=== PATIENT | male | born 1955 | race American Indian/Alaskan Native ===

== ENCOUNTER 2019-03-29 08:41 | Day surgery (SDC) | payer MEDICARE, OTHER ==
[~2019-03-29 08:41] MED LIST: DIPRIVAN 10 MG/ML IV ONE; SUBLIMAZE ONE
--- NOTE | 2019-03-29 09:26 | Anesthesia Consultation ---
Anesthesia Consult and Med Hx Date of service: 03/29/19 - Airway Anesthetic Teeth Evaluation: Dentures ROM Head & Neck: Adequate Mental/Hyoid Distance: Adequate Mallampati Class: Class II Intubation Access Assessment: Good - Pulmonary Exam CTA: Yes - Cardiac Exam Cardiac Exam: RRR - Pre-Operative Health Status ASA Pre-Surgery Classification: ASA3 Proposed Anesthetic Plan: General - Pulmonary Hx Smoking: No (CHEWING TOBACCO ONLY) Hx Sleep Apnea: No (WAGNER PRE SCREEN HIGH RISK) - Cardiovascular System Hx Hypertension: Yes (2013) - Central Nervous System Hx Seizures: No CVA: No Hx Back Pain: Yes - Gastrointestinal Hx Gastroesophageal Reflux Disease: No - Endocrine Hx Liver Disease: Yes (Hep C, currently undetectable) Hx Insulin Dependent Diabetes: Yes Hx Non-Insulin Dependent Diabetes: Yes Hx Thyroid Disease: No - Hematic Hx Anemia: No - Other Systems Hx Cancer: Yes (Prostate CA dx'd 06/2104- on Lupron shots) Hx Obesity: Yes
--- NOTE | 2019-03-29 09:26 | Anesthesia Day of Surgery ---
Anesthesia Day of Surgery - Day of Surgery Patient Examined: Yes Patient H&P Reviewed: Yes Patient is NPO: Yes
[2019-03-29] MEDS ORDERED: VERSED IV NR (09:43)
[2019-03-29] MEDS ORDERED: ANCEF/STERILE WATER 2 GM/20 ML IV NR (10:00)
[2019-03-29] MEDS ORDERED: NACL 0.9% 1000 ML 1,000 ML IV SCH (10:00)
[2019-03-29] MEDS ORDERED: WATER FOR IRRIG STERILE IR ONE (10:15)
--- NOTE | 2019-03-29 11:06 | Short Stay Summary ---
Short Stay Documentation Date of service: 03/29/19 - History H&P: obtained from office - Allergies and Medications Current Medications: Allergies No Known Allergies Allergy (Verified 10/27/15 09:52) Home Medications Medication Instructions Recorded Confirmed Last Taken Type Sitagliptin/Metformin (Nf) 1 tab PO BID 10/27/15 03/25/19 03/28/19 History [Janumet 50-1,000 mg (Nf)] Leuprolide Aceta (3 Month)(Nf) 1 dose IM [id number] 11/15/15 03/29/19 02/08/19 History [Lupron (3 Month) (Nf)] Empagliflozin [Jardiance] 25 mg PO DAILY 03/25/19 03/25/19 03/28/19 History HYDROcodone/APAP 5-325 [[place] 1 each PO Q6HR PRN 03/25/19 03/25/19 03/28/19 History 5/325] amLODIPine [Norvasc] 2.5 mg PO DAILY 03/25/19 03/25/19 03/28/19 History Active Medications Cefazolin Sodium (Ancef/Sterile Water 2 Gm/20 Ml) 2 gm IV PREOP NR Stop: 03/29/19 23:59 Sodium Chloride (Nacl 0.9% 1000 Ml) 1,000 mls @ 75 mls/hr IV DIRECT KIERRA Last Admin: 03/29/19 10:02 Dose: 75 mls/hr Documented by: Midazolam HCl (Versed) 2 mg IV ONCE NR Stop: 03/29/19 16:00 Last Admin: 03/29/19 10:02 Dose: 2 mg Documented by: - Brief post op/procedure progress note Date of procedure: 03/29/19 Pre-op diagnosis: bph, prostate cancer Post-op diagnosis: other (urethral stricture, prostate lesion) Procedure: cysto, urethral dilation, rpg, cystogram, bx of prostate lesion, mauricio Anesthesia: GETA Surgeon: DAYANA BLANK Pathology: list (prostate lesion) Specimen disposition: to lab Condition: stable - Hospital course Hospital course: bactrim, ultram, norco on chart - Disposition Condition at discharge: Stable Disposition: DC-01 TO HOME OR SELFCARE Short Stay Discharge Plan Follow up with: JOEL PIKE MD [Primary Care Provider] - 7 Days
[2019-03-29] MEDS ORDERED: SUBLIMAZE ONE (11:23)
[2019-03-29] MEDS: SUBLIMAZE IV PRN ×4 (11:24→11:55)
[2019-03-29] MEDS ORDERED: ZOFRAN ONE (12:00)
[2019-03-29] MEDS ORDERED: XYLOCAINE MPF 2% ONE (12:00)
[2019-03-29] MEDS ORDERED: NORCO 5/325 ONE (12:09)
[2019-03-29] MEDS ORDERED: NORCO 5/325 PO PRN (12:10)
[2019-03-29] MEDS ORDERED: ULTRAM PO PRN (12:54)
[2019-03-29 13:35] VITALS: BP 145/81
--- NOTE | 2019-03-29 14:27 | Post Anesthesia Evaluation ---
- Post Anesthesia Evaluation Patient Participated: Yes Airway Patent: Yes Stable Respiratory Function: Yes Nausea/Vomiting: No Temp > 96.8F: Yes Pain Manageable: Yes Adequeate Hydration: Yes Anesthesia Complications: No
--- NOTE | 2019-03-29 16:04 | Operative Report ---
PREOPERATIVE DIAGNOSES: Urethral stricture, prostate cancer. POSTOPERATIVE DIAGNOSES: Urethral stricture, prostate cancer, prostate lesion. PROCEDURES: Cystoscopy, urethral dilatation, bilateral retrograde pyelograms, biopsy and fulguration of prostate lesion, Polanco catheter placement. SURGEON: Cl Encarnacion MD ANESTHESIA: General. ESTIMATED BLOOD LOSS: Minimal. FLUIDS: Crystalloid. COMPLICATIONS: No complications. INDICATIONS: This 64-year-old gentleman has been followed with a diagnosis of prostate cancer since 2013. The patient was found to have metastatic prostate cancer. He has actually been seen by Dr. Ernie Greene at [place] as well as Dr. Elva Solomon at [facility]. He has been on hormone therapy. Also, has a history of lumbar spine surgery in 2011. Recently, he was noted to have hesitancy, pelvic pain, persistent despite Myrbetriq therapy. Attempts at urodynamic test were discontinued due to pain. He presents now for cytoscopy, direct vision internal urethrotomy. DESCRIPTION OF PROCEDURE: The patient was taken to the operative suite, placed in a supine position. After adequate general anesthesia, placed in a dorsal lithotomy position, prepped and draped in a sterile fashion. Pancystourethroscopy was performed with a 22-Venezuelan Storz cystoscope. He was noted to have a midshaft stricture. He has a history of a penile prosthesis. I elected to do gentle dilation versus cold knife cut. Only one mid urethral stricture could be appreciated. His prostate showed some mild trilobar obstruction; however, he did have two papillary like lesions on the left lateral lobe of the prostate and the dorsal aspect of the prostate. They were both biopsied and fulgurated, sent for routine pathologic evaluation. Bladder, no tumors or stones were noted. He did have some diffuse trabeculation. Bilateral retrograde pyelograms were obtained with an 8 Venezuelan Timo catheter and 8 mL of contrast. No filling defects or obstruction. Urethral dilatation as mentioned was performed to 26-Venezuelan. I was unable to pass a 24-Venezuelan resectoscope without difficulty and therefore, I biopsied the prostate lesions and did not respect them for concern of damage to his urethra. A 0.035 Glidewire was placed. An 18-Venezuelan anvik tip catheter was placed without difficulty. Cystogram confirmed adequate position. No extravasation. Rectal exam was benign. He was extubated and taken to recovery room. Also, on senior risk analyst film he was noted to have bilateral hip replacement. He will go home on [place], Ultram and Bactrim and followup in the office. JOB# [id number] [facility]
--- NOTE | 2019-03-29 16:50 | Fluoroscopy Report ---
[place] bilateral retrograde urography, [place] cystogram static-OR INDICATION / CLINICAL INFORMATION: MICROSCOPIC HEMATURIA AND DYSURIA. COMPARISON: None available. FINDINGS: Bilateral retrograde pyelograms demonstrate no evidence of pelvocaliectasis or ureterectasis. I do no t identify an intraluminal filling defect, mass or stricture. There is good drainage of contrast. Images of the urinary bladder are normal. No complication of the procedure is seen. Fluoroscopy time: 0.5 minutes. Fluoroscopic images: 11. Signer Name: Mega Hill MD Signed: 03/29/2019 4:46 PM Workstation Name: [id number]
== END 2019-03-29 13:50 | disposition home or self-care (01) ==
LOC: OR 08:41
PROVIDERS: ATTEND Urology
DX: C61 Malignant neoplasm of prostate (principal); N35.819 Other urethral stricture, male, unspecified site; E11.9 Type 2 diabetes mellitus without complications; I10 Essential (primary) hypertension; B19.20 Unspecified viral hepatitis C without hepatic coma; E66.9 Obesity, unspecified; M19.90 Unspecified osteoarthritis, unspecified site; M81.0 Age-related osteoporosis without current pathological fracture; Z96.643 Presence of artificial hip joint, bilateral; Z79.899 Other long term (current) drug therapy; Z98.890 Other specified postprocedural states
CPT/HCPCS: 52281; 55899; 74420; 82962; 88305; 88341; 88342; A4217; C1769; J0690; J2250; J2405; J2704; J3010; J7030; Q9967; 74430

== ENCOUNTER 2021-01-29 06:09 | Day surgery (SDC) | payer MEDICARE, OTHER ==
[2021-01-25 10:36] LABS: Hematocrit 40.9 % (35.5-45.6); Hemoglobin 13.8 gm/dl (11.8-15.2); Mean Corpuscular HGB Conc 34 % (32-34); Mean Corpuscular Volume 91 fl (84-94); Platelet Count 149 K/mm3 (140-440); Red Blood Count 4.51 M/mm3 (3.65-5.03); Red Cell Distribution Width 13.3 % (13.2-15.2)
[2021-01-25 10:47] LABS: BUN/Creatinine Ratio 15; Blood Urea Nitrogen 20 mg/dL (9-20); Calcium 8.5 mg/dL (8.4-10.2); Hemolysis Index 3
[~2021-01-29 06:09] MED LIST changes: +ACETAMINOPHEN 500 MG TAB PO SCH; -DIPRIVAN 10 MG/ML IV ONE; +LACTATED RINGERS 1,000 ML IV SCH; +MIDAZOLAM 2 MG/2 ML INJ IV NR; -SUBLIMAZE ONE
[2021-01-29] MEDS ORDERED: BACTERIOSTATIC SODIUM CHLORIDE 0.9% 30 ML VIAL INFILTRATI ONE (06:13)
[2021-01-29] MEDS ORDERED: ceFAZolin/STERILE WATER 2 GM/20 ML SYRINGE IV NR (07:10)
[2021-01-29] MEDS ORDERED: ONDANSETRON 4 MG/2 ML INJ IV PRN (07:25)
[2021-01-29] MEDS ORDERED: HYDROcodone/ACETAMINOPHEN 5-325 MG TAB PO PRN (07:25)
--- NOTE | 2021-01-29 07:28 | Anesthesia Day of Surgery ---
Anesthesia Day of Surgery - Day of Surgery Patient Examined: Yes Patient H&P Reviewed: Yes Patient is NPO: Yes
--- NOTE | 2021-01-29 07:28 | Anesthesia Consultation ---
Anesthesia Consult and Med Hx Date of service: 01/29/21 - Airway Anesthetic Teeth Evaluation: Dentures (upper) ROM Head & Neck: Adequate Mental/Hyoid Distance: Adequate Mallampati Class: Class III Intubation Access Assessment: Possibly Difficult (previous LMA 5) - Pre-Operative Health Status ASA Pre-Surgery Classification: ASA3 Proposed Anesthetic Plan: General - Pulmonary Hx Smoking: No (uses chewing tobacco) Hx Respiratory Symptoms: No Hx Sleep Apnea: No (high risk score for WAGNER) - Cardiovascular System Hx Hypertension: Yes Hx Heart Attack/AMI: No Hx Percutaneous Transluminal Coronary Angioplasty (PTCA): No - Central Nervous System CVA: No Hx Back Pain: Yes - Endocrine Hx Renal Disease: No Hx Liver Disease: Yes (HCV) Hx Non-Insulin Dependent Diabetes: Yes Hx Thyroid Disease: No - Other Systems Hx Cancer: Yes (hx prostate ca) Hx Obesity: Yes (BMI 36) - Additional Comments Anesthesia Medical History Comments: No hx anesthetic complications.
[2021-01-29] MEDS ORDERED: propofoL 200 MG/20 ML VIAL IV ONE (07:45)
[2021-01-29] MEDS ORDERED: KETAMINE/STERILE WATER 50 MG/ML SYRINGE ONE (07:51)
[2021-01-29] MEDS ORDERED: fentaNYL 100 MCG/2 ML INJ ONE (08:27)
[2021-01-29] MEDS ORDERED: KETOROLAC 30 MG/1 ML INJ ONE (09:00)
[2021-01-29] MEDS ORDERED: ONDANSETRON 4 MG/2 ML INJ ONE (09:01)
[2021-01-29] MEDS: HYDROmorphone 1 MG/1 ML INJ IV PRN ×4 (09:25→09:55)
--- NOTE | 2021-01-29 09:28 | XRay Report ---
INTRAOPERATIVE FLUOROSCOPY: ABDOMEN INDICATION / CLINICAL INFORMATION: CYSTOSCOPY, BLADDER BX. TECHNIQUE: Intraoperative spot images were obtained during the procedure. FINDINGS: Intraoperative fluoroscopic imaging demonstrates a wire temporarily in the bladder. Contrast is also visualized in the bladder. See the procedure report for further details. Fluoroscopy Time: 7 seconds. Fluoroscopy Images: 3. Signer Name: Mega Sevilla MD Signed: 01/29/2021 9:23 AM Workstation Name: [id number]
--- NOTE | 2021-01-29 09:40 | Short Stay Summary ---
Short Stay Documentation Date of service: 01/29/21 - History H&P: obtained from office - Allergies and Medications Current Medications: Allergies No Known Allergies Allergy (Verified 10/27/15 09:52) Home Medications Medication Instructions Recorded Confirmed Last Taken Type Sitagliptin/Metformin (Nf) 1 tab PO BID 10/27/15 01/23/21 01/28/21 History [Janumet 50-1,000 mg (Nf)] Leuprolide Aceta (3 Month)(Nf) 1 dose IM [id number] 11/15/15 01/23/21 09/08/19 09:00 History [Lupron (3 Month) (Nf)] Cyanocobalamin (Vitamin B-12) 1,000 mcg PO DAILY 10/26/19 01/23/21 01/28/21 History [Vitamin B-12] Vitamin B Complex [Super B-50 1 each PO DAILY 10/26/19 01/23/21 01/28/21 History Complex] Flomax 0.4 mg PO DAILY 11/03/19 01/23/21 01/28/21 History Enzalutamide [Xtandi] 120 mg PO DAILY 01/23/21 01/23/21 01/28/21 History Glimepiride [Amaryl] 2 mg PO DAILY 01/23/21 01/23/21 01/28/21 History Active Medications Acetaminophen (Acetaminophen 500 Mg Tab) 1,000 mg PO PREOP KIERRA Stop: 01/29/21 23:59 Last Admin: 01/29/21 06:45 Dose: 1,000 mg Documented by: Hydrocodone Bitart/Acetaminophen (Hydrocodone/Acetaminophen 5-325 Mg Tab) 2 each PO ONCE PRN PRN Reason: Pain, Moderate (4-6) Stop: 01/29/21 20:00 Cefazolin Sodium (Cefazolin/Sterile Water 2 Gm/20 Ml Syringe) 2 gm IV PREOP NR Stop: 01/29/21 20:00 Hydromorphone HCl (Hydromorphone 1 Mg/1 Ml Inj) 0.5 mg IV Q10MIN PRN PRN Reason: Pain , Severe (7-10) Stop: 01/29/21 23:00 Lactated Ringer's (Lactated Ringers) 1,000 mls @ 100 mls/hr IV DIRECT KIERRA Stop: 01/29/21 23:59 Last Admin: 01/29/21 06:50 Dose: 100 mls/hr Documented by: Midazolam HCl (Midazolam 2 Mg/2 Ml Inj) 2 mg IV PREOP NR Stop: 01/29/21 23:59 Last Admin: 01/29/21 07:11 Dose: 2 mg Documented by: Ondansetron HCl (Ondansetron 4 Mg/2 Ml Inj) 4 mg IV ONCE PRN PRN Reason: Nausea And Vomiting Stop: 01/29/21 20:00 - Brief post op/procedure progress note Date of procedure: 01/29/21 Pre-op diagnosis: urethral stricture Post-op diagnosis: other (recurrent prostate cancer) Procedure: cysto, dviu, TURP, CYSTOGRAM Anesthesia: GETA Surgeon: DAYANA BLANK Estimated blood loss: minimal Pathology: list (prostate chips) Specimen disposition: to lab (PROSTATE CHIPS) Condition: stable - Hospital course Hospital course: MACROBID & NORCO ON CHART - Disposition Condition at discharge: Stable Disposition: DC-01 TO HOME OR SELFCARE Short Stay Discharge Plan Follow up with: JOEL PIKE MD [Primary Care Provider] - 7 Days
[2021-01-29 12:02] VITALS: BP 118/71
--- NOTE | 2021-01-29 12:18 | Operative Report ---
PREOPERATIVE DIAGNOSIS: Urethral stricture. POSTOPERATIVE DIAGNOSIS: Urethral stricture, recurrent prostate cancer. PROCEDURE: Cystoscopy, direct vision internal urethrotomy, transurethral resection of prostate, cystogram. SURGEON: Cl Encarnacion MD ANESTHESIA: General. ESTIMATED BLOOD LOSS: Minimal. FLUIDS: Crystalloid. COMPLICATIONS: No complications. INDICATIONS: This patient is a 66-year-old gentleman with known advanced prostate cancer, has also been seen by [facility]. He has noticed a significant decreased force of stream and pain, presents now for intervention. DESCRIPTION OF PROCEDURE: The patient was taken to the operative suite, placed in a supine position. After adequate general anesthesia, placed in a dorsal lithotomy position, prepped and draped in a sterile fashion. Pancystourethroscopy was performed. The patient was having diffuse stenosis of his urethra. Dilation with Vo sounds to 26-Jordanian was performed without difficulty. He still had some stenosis at the bulbar urethra, which a 12 o'clock cut was made with the cold knife. Cystoscopy, the prostate had areas of what appeared to be recurrent tumor bladder, diffuse trabeculation and erythema. The ureteral orifices could not be appreciated. Next, using a 24-Jordanian resectoscope and loop with the cutting and coag on 160 and 60, transurethral resection of the recurrent growth of what appeared to be cancer on the lateral lobes bilaterally. Chips were evacuated out with the PippaSimpleRelevance evacuator. Adequate hemostasis achieved. A 20-Jordanian 3-way Polanco was placed with a plug. Cystogram was performed. No extravasation. Rectal exam was benign. He was extubated and taken to recovery room. He will go home on [place] and [place]. JOB# [id number] [facility]
== END 2021-01-29 11:15 | disposition home or self-care (01) ==
LOC: OR 06:09
PROVIDERS: ATTEND Urology
DX: N35.812 Other bulbous urethral stricture, male (principal); Z20.822 Contact with and (suspected) exposure to COVID-19; C61 Malignant neoplasm of prostate; E11.9 Type 2 diabetes mellitus without complications; I10 Essential (primary) hypertension; E66.9 Obesity, unspecified; M19.90 Unspecified osteoarthritis, unspecified site; Z79.899 Other long term (current) drug therapy; Z98.890 Other specified postprocedural states
CPT/HCPCS: 36415; 52276; 52630; 74018; 80048; 82962; 85027; 88305; 88342; C1758; C1769; J0690; J1170; J1885; J2250; J2405; J2704; J3010; J3490; J7120; Q9967; U0003